=== PATIENT | female | born 1960 | race Caucasian/White ===

== ENCOUNTER 2018-04-16 10:51 | Emergency (ER) | payer OTHER ==
[~2018-04-16] VITALS: Ht 165.1 cm; Wt 63.5 kg
[~2018-04-16 10:51] MED LIST: DIL100 PO; FOLIC ACID PO; NEURONTIN; SYN125 PO; ZYP5
[2018-04-16 11:01] VITALS: BP 132/78; Ht 165.1 cm; Wt 63.5 kg
== END 2018-04-16 12:42 | disposition home or self-care (01) ==
LOC: ED 10:51
DX: S30.0XXA Contusion of lower back and pelvis, initial encounter (principal); W06.XXXA Fall from bed, initial encounter; Y93.89 Activity, other specified; Y92.89 Other specified places as the place of occurrence of the external cause; Y99.8 Other external cause status